=== PATIENT | female | born 1950 | race Caucasian/White ===

== ENCOUNTER 2018-08-31 05:38 | Day surgery (SDC) | payer OTHER, MEDICARE ==
[~2018-08-31] VITALS: Ht 154.9 cm; Wt 73.6 kg
[~2018-08-31 05:38] MED LIST: HYDROCHLOROTH12.5 MG PO; LISI-170 PO; OMEP-110 PO
[2018-08-31] MEDS ORDERED: LACTATED RINGERS 1,000 ML IV SCH (06:11)
[2018-08-31 06:28] VITALS: BP 153/78
[2018-08-31] MEDS ORDERED: LIDOCAINE 1%-EPI 1:100K, 30ML ONE (06:53)
[2018-08-31] MEDS ORDERED: BUPIVACAINE/PF-EPI 0.5% 1:200K ONE (06:53)
[2018-08-31] MEDS ORDERED: FENTANYL PF 100 MCG/2ML ONE ×2 (06:57→07:55)
[2018-08-31] MEDS ORDERED: MIDAZOLAM 1 MG/ML, 2ML ONE (06:57)
[2018-08-31] MEDS ORDERED: CEFAZOLIN 1,000 MG ONE (07:09)
[2018-08-31] MEDS ORDERED: LIDOCAINE-MPF 2% ,5ML ONE (07:09)
[2018-08-31] MEDS ORDERED: PROPOFOL 10 MG/ML, 20ML ONE (07:09)
[2018-08-31] MEDS ORDERED: LIDOCAINE 1%-EPI 1:100K, 30ML INFIL ONE (07:23)
[2018-08-31] MEDS ORDERED: BUPIVACAINE/PF-EPI 0.5% 1:200K INFIL ONE (07:24)
[2018-08-31] MEDS ORDERED: ALBUTEROL SULFATE 2.5 MG/3 ML NPPB PRN (07:30)
[2018-08-31] MEDS ORDERED: LABETALOL 5MG/ML, 20ML IV PRN (07:30)
[2018-08-31] MEDS ORDERED: OXYcodone 5 MG/5 ML ORAL.SOL UDC PO PRN (07:30)
[2018-08-31] MEDS ORDERED: FENTANYL PF 100 MCG/2ML IV PRN (07:30)
[2018-08-31] MEDS ORDERED: ACETAMINOPHEN 325 MG TABLET PO PRN (07:30)
[2018-08-31] MEDS ORDERED: hydrALAzine 20 MG/ML, 1ML IV PRN (07:30)
[2018-08-31] MEDS ORDERED: MEPERIDINE/PF 25MG/0.5ML IVPush PRN (07:30)
[2018-08-31] MEDS ORDERED: HYDROmorphone 1 MG/ML, 1ML IV PRN (07:30)
[2018-08-31] MEDS ORDERED: PROMETHAZINE 25 MG/ML, 1ML IV PRN (07:30)
[2018-08-31] MEDS ORDERED: ACETAMINOPHEN 650 MG/20.3 ML UDC ONE (07:55)
[2018-08-31] MEDS ORDERED: OXYcodone 5 MG/5 ML ORAL.SOL UDC ONE (07:55)
[2018-08-31] MEDS ORDERED: OMEPRAZOLE 20 MG CAPSULE.DR PO SCH (09:00)
[2018-08-31] MEDS ORDERED: LISINOPRIL 20 MG TABLET PO SCH (09:00)
[2018-08-31] MEDS ORDERED: HYDROCHLOROTHIAZIDE 12.5 MG CAPSULE PO SCH (09:00)
== END 2018-08-31 09:55 | disposition home or self-care (01) ==
LOC: OUT 05:38
PROVIDERS: ATTEND Orthopaedic Surgery
DX: S83.281A Other tear of lateral meniscus, current injury, right knee, initial encounter (principal); S83.241A Other tear of medial meniscus, current injury, right knee, initial encounter; I25.10 Atherosclerotic heart disease of native coronary artery without angina pectoris; M94.261 Chondromalacia, right knee; X58.XXXA Exposure to other specified factors, initial encounter; Y93.89 Activity, other specified; Y92.89 Other specified places as the place of occurrence of the external cause; Y99.8 Other external cause status; Z88.0 Allergy status to penicillin; Z88.8 Allergy status to other drugs, medicaments and biological substances
CPT/HCPCS: 29880; 93005; J0690; J2250; J2704; J3010; J3490; J7120